=== PATIENT | male | born 1980 | race Hispanic/Latino ===

== ENCOUNTER 2018-11-09 21:40 | Emergency (ER) | payer OTHER, SELFPAY ==
[2018-11-09] MEDS ORDERED: ORPHENADRINE CITRATE 30 MG/ML ML ONE (22:16)
[2018-11-09] MEDS ORDERED: IBUPROFEN 600 MG TABLET ONE (22:17)
== END 2018-11-09 23:55 | disposition home or self-care (01) ==
LOC: EDH 21:40
DX: S39.012A Strain of muscle, fascia and tendon of lower back, initial encounter (principal); Z72.0 Tobacco use; W11.XXXA Fall on and from ladder, initial encounter; Y93.89 Activity, other specified; Y92.89 Other specified places as the place of occurrence of the external cause; Y99.8 Other external cause status
CPT/HCPCS: 72125; 72128; 72131; 96372; 99284; J2360